=== PATIENT | female | born 1970 | race Two or more races ===

== ENCOUNTER 2022-12-27 17:31 | Emergency (ER) | payer OTHER ==
[2022-12-27 17:50] VITALS: BP 135/86; PULSE 93; RESP 20; TEMP 97.9; BMI 29.0
[2022-12-27] MEDS ORDERED: ACETAMINOPHEN 500 MG TABLET (FP) PO ONE (17:59)
[2022-12-27] MEDS ORDERED: IBUPROFEN 600 MG TABLET (FP) PO ONE ×2 (17:59→18:00)
[2022-12-27] MEDS ORDERED: ACETAMINOPHEN 500 MG TABLET (FP) ONE (18:00)
== END 2022-12-27 18:36 | disposition home or self-care (01) ==
LOC: JER 17:31
DX: S93.401A Sprain of unspecified ligament of right ankle, initial encounter (principal); X50.0XXA Overexertion from strenuous movement or load, initial encounter; Y93.01 Activity, walking, marching and hiking
CPT/HCPCS: 73610-TC-RT-FY; 99283-25

== ENCOUNTER 2025-04-14 11:03 | Emergency (ER) | payer OTHER ==
[2025-04-14 11:18] VITALS: BP 160/87; PULSE 78; RESP 18; TEMP 98.6; BMI 32.8
[2025-04-14] MEDS ORDERED: LIDOCAINE 4% PATCH TP ONE (12:01)
[2025-04-14] MEDS ORDERED: KETOROLAC TROMETHAMINE 30 MG/1 ML VIAL ONE (12:01)
[2025-04-14] MEDS ORDERED: ACETAMINOPHEN 325 MG TABLET (FP) ONE (12:02)
[2025-04-14] MEDS: LIDOCAINE 5% TOPICAL PATCH TP ONE (12:12)
[2025-04-14] MEDS: ACETAMINOPHEN 325 MG TABLET (FP) PO ONE (12:13)
[2025-04-14] MEDS: KETOROLAC TROMETHAMINE 30 MG/1 ML VIAL IM ONE (12:13)
[2025-04-14] MEDS ORDERED: LIDOCAINE PATCH REMOVAL MC ONE (22:00)
== END 2025-04-14 12:28 | disposition home or self-care (01) ==
LOC: JERFT 11:03 → JER 11:03 → JERFT 12:28
PROC: 3E0233Z Introduction of Anti-inflammatory into Muscle, Percutaneous Approach (ICD-10-PCS; principal; 2025-04-14)
DX: M62.830 Muscle spasm of back (principal); M54.50 Low back pain, unspecified
CPT/HCPCS: 99284-25